=== PATIENT | male | born 1980 | race Caucasian/White ===

== ENCOUNTER → 2019-02-12 | Outpatient (CLI) | payer BC ==
[2019-02-12 17:12] LABS: FREE T4 (FREE THYROXINE) 4.71 ng/dL (0.78-2.19)
[2019-02-12 17:28] LABS: THYROID STIMULATING HORMONE < 0.01 uIU/mL (0.47-4.68)
== END ==
LOC: LAB 15:40
DX: E05.90 Thyrotoxicosis, unspecified without thyrotoxic crisis or storm (principal)
CPT/HCPCS: 36415; 84439; 84443; 84481